=== PATIENT | male | born 1995 | race African-American/Black ===

== ENCOUNTER 2024-04-08 00:08 | Emergency (ER) | payer OTHER ==
[~2024-04-08] VITALS: Ht 172.7 cm; Wt 65.0 kg
[2024-04-08 00:10] VITALS: O2SAT 98
[2024-04-08] MEDS: ZIPRASIDONE MESYLATE 20MG/VIAL IM ONE (01:00)
[2024-04-08] MEDS: LORAZEPAM 1MG TABLET PO ONE (01:00)
[2024-04-08] MEDS: DIPHENHYDRAMINE 50MG/ML VIAL IM PRN (01:10)
[2024-04-08] MEDS: LORAZEPAM 2MG/ML INJ IM ONE (02:15)
[2024-04-08 04:05] LABS: *AMPHETAMINES SCREEN URINE NEGATIVE (NEGATIVE); *BARBITURATES SCREEN URINE NEGATIVE (NEGATIVE); *BENZODIAZEPINES SCREEN URINE NEGATIVE (NEGATIVE); *COCAINE SCREEN URINE NEGATIVE (NEGATIVE); CANNABINOID URINE SCREEN PRESUMPTIVE POSITIVE (NEGATIVE); ECSTASY MDMA SCREEN URINE NEGATIVE (NEGATIVE); METHADONE URINE SCREEN NEGATIVE (NEGATIVE); OPIATES URINE SCREEN PRESUMPTIVE POSITIVE (NEGATIVE); PHENCYCLIDINE URINE SCREEN NEGATIVE (NEGATIVE)
[2024-04-08 04:12] LABS: HEMATOCRIT. 37.1 % (42.0-52.0); HEMOGLOBIN. 12.4 g/dL (14.0-18.0); MEAN CORPUSCULAR HEMOGLOBIN 30.1 pg (28.0-32.0); MEAN CORPUSCULAR HGB CONC 33.3 g/dL (31.0-37.0); MEAN CORPUSCULAR VOLUME 90.5 fL (80.0-94.0); MEAN PLATELET VOLUME 7.7 fl (7.4-10.4); PLATELET 347 x1000/uL (130-400); RED CELL DISTRIBUTION WIDTH 12.7 % (11.6-14.6); WHITE BLOOD COUNT 11.9 x1000/uL (4.5-11.0)
[2024-04-08 04:50] LABS: DIFFERENTIAL COMMENT 1
[2024-04-08 05:04] LABS: CHLORIDE 108 mEq/L (98-107); SODIUM 143 mEq/L (136-145)
[2024-04-08 05:05] LABS: CARBON DIOXIDE 29 mEq/L (21-32)
[2024-04-08 05:06] LABS: CALCIUM 9.3 mg/dL (8.7-10.4)
[2024-04-08 05:10] LABS: CREATININE 0.6 mg/dL (0.6-1.3)
[2024-04-08 05:11] LABS: GLUCOSE 85 mg/dL (70-105); UREA NITROGEN BLOOD 12 mg/dL (9-23)
[2024-04-08 05:12] LABS: ACETAMINOPHEN < 2 ug/mL (10-30)
[2024-04-08 05:25] LABS: ETHANOL BLOOD < 10 mg/dL (<10)
[2024-04-08 06:15] LABS: PLATELET ESTIMATE NORMAL
[2024-04-08] MEDS: QUETIAPINE FUMARATE 50MG TABLET PO SCH (22:03)
[2024-04-08] MEDS: NICOTINE 21MG PATCH TD ONE (22:33)
[2024-04-08] MEDS: HALOPERIDOL 5MG TABLET PO ONE (22:33)
[2024-04-09] MEDS: NICOTINE 21MG PATCH TD ONE (14:36)
[2024-04-09] MEDS: HALOPERIDOL LACTATE 5MG/ML VIAL IM ONE (16:00)
[2024-04-09] MEDS: LORAZEPAM 2MG/ML INJ IM ONE (16:20)
[2024-04-09] MEDS ORDERED: HALOPERIDOL LACTATE 5MG/ML VIAL IM ONE (18:00)
[2024-04-09] MEDS ORDERED: LORAZEPAM 2MG/ML INJ IM ONE (18:00)
[2024-04-10 08:33] VITALS: BP 104/67; PULSE 92; RESP 17; TEMP 98.1
== END 2024-04-10 11:36 | disposition home or self-care (01) ==
LOC: ER 00:08
DX: R45.851 Suicidal ideations (principal); F12.10 Cannabis abuse, uncomplicated; Z20.822 Contact with and (suspected) exposure to COVID-19; Z86.59 Personal history of other mental and behavioral disorders
CPT/HCPCS: 80305; 80048; 80307; 80329; 80320; 85025; 36415; 96372 ×2; 99285; 87426; J1630 ×2; Z7610 ×3; J1200; J2060 ×2; J3486; G0480